=== PATIENT | female | born 1985 | race Caucasian/White ===

== ENCOUNTER 2016-12-30 15:16 | Emergency (ER) | payer BC ==
[~2016-12-30] VITALS: Ht 154.9 cm; Wt 68.5 kg
== END 2016-12-30 17:07 | disposition home or self-care (01) ==
LOC: ED 15:16
DX: J06.9 Acute upper respiratory infection, unspecified (principal); Z87.891 Personal history of nicotine dependence
CPT/HCPCS: 81001; 87081; 87880; 99283

== ENCOUNTER 2017-04-13 03:22 | Inpatient (IN) | payer BC ==
[~2017-04-13] VITALS: Ht 154.9 cm; Wt 79.0 kg
[2017-04-13] MEDS ORDERED: LEVOTHYROXINE75 MCG PO (04:04)
[2017-04-13] MEDS ORDERED: CALCIUM500 MG PO (04:06)
--- NOTE | 2017-04-13 06:51 | NUR ---
04/13/17 0651 Laure Gonzalez [phone] - PT ARRIVED TO PACU. DENIES PAIN AND NAUSEA. SPINAL LEVEL AT T4. AT BEDSIDE
--- NOTE | 2017-04-13 13:56 | NUR ---
MOM IN BED, BABY NEXT TO HER, AND DAD ASLEEP ON COUCH. STAYED A MOMENT, PT IS ALERT AND ORIENTED. SHE WAS BEAMING, BABY IS BEAUTIFUL. EXTENDED A BLESSING, WILL FOLLOW NEEDED
== END 2017-04-16 12:15 | disposition home or self-care (01) | DRG 766 ==
LOC: FBCO 03:22 → FBC 03:31 → FBCO 04-26 09:03
PROVIDERS: ADMIT Obstetrics & Gynecology
PROC: 10D00Z1 Extraction of Products of Conception, Low, Open Approach (ICD-10-PCS; principal; 2017-04-13 05:33)
DX: O34.211 Maternal care for low transverse scar from previous cesarean delivery (principal); O42.02 Full-term premature rupture of membranes, onset of labor within 24 hours of rupture; Z3A.38 38 weeks gestation of pregnancy; Z37.0 Single live birth
CPT/HCPCS: 01961; 36415; 80053; 83615; 85025; 85027; C1763; J0690; J1200; J2274; J2405; J2590; J3010; J7040; J7120